=== PATIENT | male | born 1995 | race Two or more races ===

== ENCOUNTER 2024-07-26 07:39 | Emergency (ER) | payer OTHER ==
[~2024-07-26] VITALS: Ht 177.8 cm; Wt 86.6 kg
[2024-07-26 07:41] VITALS: TEMP 98.8
[2024-07-26 07:47] VITALS: BP 134/89; PULSE 72; RESP 17; O2SAT 97
[2024-07-26 09:21] LABS: Hepatitis B Surface Antibody Negative (Negative)
[2024-07-26 09:34] LABS: Hepatitis B Surface Antigen Negative (Negative)
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
== END 2024-07-26 10:27 | disposition home or self-care (01) ==
LOC: ER 07:39
DX: Z77.21 Contact with and (suspected) exposure to potentially hazardous body fluids (principal)
CPT/HCPCS: 36415; 86703; 86706; 86803; 87340